=== PATIENT | male | born 1980 | race African-American/Black ===

== ENCOUNTER 2024-06-10 20:20 | Emergency (ER) | payer OTHER ==
[~2024-06-10] VITALS: Ht 162.6 cm; Wt 58.0 kg
[2024-06-10 20:42] VITALS: TEMP 98.4
[2024-06-11 00:05] LABS: BASOPHILS % 1.1 % (0.0-2.0); DIFFERENTIAL COMMENT 0; EOSINOPHILS % 5.8 % (0.0-5.0); HEMATOCRIT. 40.9 % (42.0-52.0); HEMOGLOBIN. 13.1 g/dL (14.0-18.0); LYMPHOCYTES % 17.6 % (20.0-50.0); MEAN CORPUSCULAR HEMOGLOBIN 31.4 pg (28.0-32.0); MEAN CORPUSCULAR HGB CONC 31.9 g/dL (31.0-37.0); MEAN CORPUSCULAR VOLUME 98.3 fL (80.0-94.0); MEAN PLATELET VOLUME 8.5 fl (7.4-10.4); MONOCYTES % 13.3 % (2.0-8.0); NEUTROPHILS % 62.2 % (40.0-76.0); PLATELET 256 x1000/uL (130-400); RED BLOOD CELL COUNT 4.16 mill/uL (4.7-6.1); WHITE BLOOD COUNT 3.6 x1000/uL (4.5-11.0)
[2024-06-11 00:13] LABS: CARBON DIOXIDE 24 mEq/L (21-32); CHLORIDE 108 mEq/L (98-107); POTASSIUM 3.5 mEq/L (3.5-5.1); SODIUM 140 mEq/L (136-145)
[2024-06-11 00:14] LABS: CALCIUM 9.1 mg/dL (8.7-10.4)
[2024-06-11 00:18] LABS: CREATININE 0.7 mg/dL (0.6-1.3)
[2024-06-11 00:19] LABS: GLUCOSE 85 mg/dL (70-105); UREA NITROGEN BLOOD 12 mg/dL (9-23)
[2024-06-11 00:20] LABS: ALANINE AMINOTRANSFERASE 91 IU/L (10-49); ASPARTATE AMINOTRANSFERASE 73 IU/L (<34)
[2024-06-11 00:21] LABS: ALBUMIN 4.3 g/dL (3.2-4.8); BILIRUBIN DIRECT 0.1 mg/dL (<=3.0); BILIRUBIN TOTAL 0.3 mg/dL (0.1-1.0); PROTEIN TOTAL 7.5 g/dL (6.0-8.3)
[2024-06-11] MEDS: PREDNISONE 20MG TABLET PO STA (00:28)
[2024-06-11 01:02] LABS: CLARITY URINE CLOUDY (CLEAR); COLOR URINE YELLOW (YELLOW); GLUCOSE URINE NEGATIVE (NEGATIVE); KETONES URINE NEGATIVE (NEGATIVE); LEUKOCYTE ESTERASE URINE NEGATIVE (NEGATIVE); NITRITE URINE NEGATIVE (NEGATIVE); OCCULT BLOOD URINE NEGATIVE (NEGATIVE); PROTEIN URINE 2+ (NEGATIVE); SPECIFIC GRAVITY URINE 1.022 (1.005-1.030); UROBILINOGEN URINE 0.2 E.U./dL (0.2-1.0)
[2024-06-11 01:30] VITALS: PULSE 75; RESP 18; O2SAT 93
[2024-06-11] MEDS: IPRATROPIUM BROMIDE (0.02%) 0.5MG/2.5ML NEB HHN STA (01:30)
[2024-06-11] MEDS: ALBUTEROL (0.083%) 2.5MG/3ML NEB HHN STA (01:30)
[2024-06-11] MEDS ORDERED: P50 MT (02:02)
[2024-06-11] MEDS ORDERED: ALBU18HF2 IH (02:02)
[2024-06-11] MEDS: IOHEXOL-300 100 ML BOTTLE ONE (04:02)
[2024-06-11 04:08] VITALS: BP 119/65; PULSE 75; RESP 18; O2SAT 97
[2024-06-11 05:42] LABS: SQUAMOUS EPITHELIAL CELL URINE FEW /lpf (RARE/1+)
[2024-06-11 05:44] LABS: BACTERIA URINE NONE SEEN; RBC URINE NONE SEEN /hpf (0-2); WBC URINE 0-2 /hpf (0-2)
[2024-06-11 05:46] LABS: CALCIUM OXALATE CRYSTALS URINE 1+ /lpf
== END 2024-06-11 04:10 | disposition home or self-care (01) ==
LOC: ER 20:20
DX: J45.901 Unspecified asthma with (acute) exacerbation (principal); R10.13 Epigastric pain; Z98.890 Other specified postprocedural states
CPT/HCPCS: 80076; 80048; 85025; 36415; 71046; 93005; 99285; 81003; 74177; 94640; Q9967; J7512; Z7610 ×4